=== PATIENT | female | born 1965 | race Two or more races ===

== ENCOUNTER 2024-06-22 08:40 | Day surgery (SDC) | payer BC, MEDICAID, SELFPAY ==
[2024-06-21 11:41] VITALS: BMI 26.6
[2024-06-22] VITALS (11 sets, daily range): BP systolic 114–153; BP diastolic 67–104; PULSE 61–78; RESP 12–20; TEMP 36.4–36.7; O2SAT 93–98; BMI 27.2
[2024-06-22] MEDS: SODIUM CHLORIDE 0.9% 500 ML 500 ML 20 ML IV (11:24)
[2024-06-22] MEDS: MIDAZOLAM INJ 1 MG/ML VIAL 2 ML (ASD USE ONLY) 2 MG IV (11:24)
[2024-06-22] MEDS: fentaNYL CIT INJ 50 mCg/ML AMP 2ML (ASD USE ONLY) IV (11:24)
[2024-06-22] MEDS: DiphenhydrAMINE INJ 50 MG/ML VIAL 25 MG IV (11:24)
== END 2024-06-22 12:30 | disposition home or self-care (01) ==
PROVIDERS: PCP Internal Medicine; Referring Provider Internal Medicine Gastroenterology; Visit Provider Internal Medicine Gastroenterology
PROC: (CPT 43239; principal; 2024-06-22 13:30)
DX: K29.70 Gastritis, unspecified, without bleeding (principal); K57.10 Diverticulosis of small intestine without perforation or abscess without bleeding; Z98.890 Other specified postprocedural states
CPT/HCPCS: 43239; A4649; J1200; J2250; J3010; J7040

== ENCOUNTER 2024-07-15 07:30 | Day surgery (SDC) | payer BC, MEDICAID, SELFPAY ==
[2024-07-14 13:26] VITALS: BMI 26.5
[2024-07-15] VITALS (10 sets, daily range): BP systolic 104–141; BP diastolic 65–87; PULSE 60–83; RESP 12–18; TEMP 36.4–37.4; O2SAT 92–97; BMI 25.7
[2024-07-15] MEDS: fentaNYL CIT INJ 50 mCg/ML AMP 2ML (ASD USE ONLY) IV (11:19)
[2024-07-15] MEDS: SODIUM CHLORIDE 0.9% 500 ML 500 ML 20 ML IV (11:19)
[2024-07-15] MEDS: DiphenhydrAMINE INJ 50 MG/ML VIAL 25 MG IV (11:20)
[2024-07-15] MEDS: MIDAZOLAM INJ 1 MG/ML VIAL 2 ML (ASD USE ONLY) 2 MG IV (11:26)
[2024-07-15] MEDS: SIMETHICONE 40 MG/0.6 ML ORAL SYRINGE PO (11:35)
== END 2024-07-15 12:35 | disposition home or self-care (01) ==
PROVIDERS: PCP Internal Medicine; Referring Provider Internal Medicine Gastroenterology; Visit Provider Internal Medicine Gastroenterology
PROC: 0DBE8ZX Excision of Large Intestine, Via Natural or Artificial Opening Endoscopic, Diagnostic (ICD-10-PCS; CPT 45380; principal; 2024-07-15 08:15)
DX: Z12.11 Encounter for screening for malignant neoplasm of colon (principal); K52.9 Noninfective gastroenteritis and colitis, unspecified; K64.8 Other hemorrhoids; K57.30 Diverticulosis of large intestine without perforation or abscess without bleeding; K31.89 Other diseases of stomach and duodenum
CPT/HCPCS: 45380; J1200; J2250; J3010; J7040; A9270

== ENCOUNTER 2024-08-24 07:15 | Day surgery (SDC) | payer BC, MEDICAID, SELFPAY ==
[2024-08-23 14:23] VITALS: BMI 26.9
[2024-08-24] VITALS (10 sets, daily range): BP systolic 140–170; BP diastolic 77–101; PULSE 59–99; RESP 12–18; TEMP 36.2–37; O2SAT 92–99; BMI 26.5
[2024-08-24] MEDS: BENZOCAINE 20% (Hurricaine) SPRAY 1 DOSE TOP (09:34)
[2024-08-24] MEDS: RINGERS LACTATED 1000 ML 1,000 ML 125 ML IV (09:37)
[2024-08-24] MEDS: fentaNYL CIT INJ 50 mCg/ML AMP 2ML (ASD USE ONLY) IVP (09:38)
[2024-08-24] MEDS: DiphenhydrAMINE INJ 50 MG/ML VIAL 25 MG IVP (09:39)
[2024-08-24] MEDS: MIDAZOLAM INJ 1 MG/ML VIAL 2 ML (ASD USE ONLY) 2 MG IVP (09:39)
== END 2024-08-24 10:22 | disposition home or self-care (01) ==
PROVIDERS: PCP Internal Medicine; Referring Provider Internal Medicine Gastroenterology; Visit Provider Internal Medicine Gastroenterology
PROC: (CPT 43239; principal; 2024-08-24 07:30)
DX: K29.70 Gastritis, unspecified, without bleeding (principal); Z98.890 Other specified postprocedural states; K20.80 Other esophagitis without bleeding; K31.89 Other diseases of stomach and duodenum
CPT/HCPCS: 43239; 43249; C1726; J1200; J2250; J3010; J7120; A9270

== ENCOUNTER 2024-12-14 09:35 | Day surgery (SDC) | payer BC, MEDICAID, SELFPAY ==
[2024-12-14] VITALS (11 sets, daily range): BP systolic 106–194; BP diastolic 62–101; PULSE 56–105; RESP 8–18; TEMP 36.4–36.6; O2SAT 92–98; BMI 25.2
[2024-12-14] MEDS: RINGERS LACTATED 500 ML 500 ML 20 ML IV (12:33)
[2024-12-14] MEDS: MIDAZOLAM INJ 1 MG/ML VIAL 2 ML (ASD USE ONLY) 2 MG IVP (12:34)
[2024-12-14] MEDS: fentaNYL CIT INJ 50 mCg/ML AMP 2ML (ASD USE ONLY) IVP (12:34)
[2024-12-14] MEDS: ONDANSETRON INJ 2 MG/ML INJ 2 ML 4 MG IVP (12:36)
[2024-12-14] MEDS: BENZOCAINE 20% (Hurricaine) SPRAY 1 DOSE TOP (12:39)
[2024-12-14] MEDS: LABETALOL INJ 5 MG/ML VIAL 20 ML IVP (12:46)
== END 2024-12-14 13:28 | disposition home or self-care (01) ==
PROVIDERS: PCP Internal Medicine; Referring Provider Internal Medicine Gastroenterology; Visit Provider Internal Medicine Gastroenterology
PROC: (CPT 43239; principal; 2024-12-14 11:15)
DX: K22.2 Esophageal obstruction (principal); K31.7 Polyp of stomach and duodenum; Z98.890 Other specified postprocedural states; K29.70 Gastritis, unspecified, without bleeding
CPT/HCPCS: 43239; 43249; A4217; A4649; C1726; J1200; J2250; J2405; J3010; J3490; J7120; A9270; J1920